=== PATIENT | male | born 1995 | race Caucasian/White ===

== ENCOUNTER → 2017-03-19 | Emergency (ER) | payer OTHER ==
[~2017-03-19] VITALS: Ht 177.8 cm; Wt 72.6 kg
== END | disposition home or self-care (01) ==
LOC: ER 10:06
DX: B34.9 Viral infection, unspecified (principal)

== ENCOUNTER 2022-09-22 16:53 | Emergency (ER) | payer OTHER ==
[~2022-09-22] VITALS: Ht 177.8 cm; Wt 79.4 kg
== END 2022-09-22 19:46 | disposition home or self-care (01) ==
LOC: ER 16:53
DX: M54.31 Sciatica, right side (principal); Z91.018 Allergy to other foods